=== PATIENT | male | born 1965 | race Caucasian/White ===

== ENCOUNTER 2023-11-19 07:00 | Emergency (ER) | payer OTHER ==
[~2023-11-19] VITALS: Ht 175.3 cm; Wt 79.4 kg
[2023-11-19] MEDS ORDERED: KETOROLAC TROMETHAMINE 15 MG/ML VIAL ONE (07:40)
[2023-11-19] MEDS ORDERED: ONDANSETRON HCL/PF 4 MG/2 ML VIAL ONE (07:40)
[2023-11-19] MEDS ORDERED: MORPHINE SULFATE INJ 4 MG/ML DISP.SYRIN ONE (07:40)
[2023-11-19] MEDS: IV NS 0.9% 500 ML BAG IV ONE (07:55)
[2023-11-19] MEDS: ONDANSETRON HCL/PF 4 MG/2 ML VIAL IVP ONE (07:56)
[2023-11-19] MEDS: KETOROLAC TROMETHAMINE 15 MG/ML VIAL IV ONE (07:57)
[2023-11-19] MEDS: MORPHINE SULFATE INJ 2 MG/ML DISP.SYRIN IV ONE (07:58)
[2023-11-19] MEDS ORDERED: GABA100C PO (08:31)
[2023-11-19] MEDS ORDERED: NALO4SPR BNOSTRILS (08:31)
[2023-11-19] MEDS ORDERED: HYDR-3980 PO (08:31)
[2023-11-19] MEDS ORDERED: CYCL10TA9 PO (08:31)
[2023-11-19] MEDS ORDERED: HYDROCODONE/APAP 10/325MG TABLET ONE (08:42)
[2023-11-19] MEDS: HYDROCODONE/APAP 10/325MG TABLET PO ONE (08:43)
[2023-11-19 09:16] VITALS: BP 116/63; TEMP 98.1; O2SAT 100
== END 2023-11-19 09:20 | disposition home or self-care (01) ==
LOC: ER 07:04
DX: M54.16 Radiculopathy, lumbar region (principal); E78.00 Pure hypercholesterolemia, unspecified; E11.9 Type 2 diabetes mellitus without complications; Z95.9 Presence of cardiac and vascular implant and graft, unspecified
CPT/HCPCS: 99285; 96374; 96375; 96361; J2270; J2405; J7030; J1885